=== PATIENT | male | born 1955 | race Two or more races ===

== ENCOUNTER 2017-07-09 07:50 | Outpatient (CLI) | payer OTHER | END 2017-07-09 08:06 | disposition home or self-care (01) | LOC: SONOGRAMA 07:50 | DX: M12.862 Other specific arthropathies, not elsewhere classified, left knee (principal); M12.861 Other specific arthropathies, not elsewhere classified, right knee ==

== ENCOUNTER 2017-07-24 06:21 | Outpatient (CLI) | payer OTHER | END 2017-07-24 06:30 | disposition home or self-care (01) | LOC: LAB 06:21 | DX: E88.89 Other specified metabolic disorders (principal); D68.8 Other specified coagulation defects; B95.62 Methicillin resistant Staphylococcus aureus infection as the cause of diseases classified elsewhere; E83.42 Hypomagnesemia ==

== ENCOUNTER 2017-07-24 07:19 | Outpatient (CLI) | payer OTHER | END 2017-07-24 07:36 | disposition home or self-care (01) | LOC: RAD 07:19 | DX: M79.651 Pain in right thigh (principal); M79.652 Pain in left thigh; M79.604 Pain in right leg; M79.605 Pain in left leg ==

== ENCOUNTER → 2017-08-06 | Outpatient (CLI) | payer OTHER | END | disposition home or self-care (01) | LOC: RAD 11:16 | DX: Z76.89 Persons encountering health services in other specified circumstances (principal); M17.0 Bilateral primary osteoarthritis of knee ==

== ENCOUNTER 2017-08-20 15:08 | Outpatient (CLI) | payer OTHER | END 2017-08-20 15:18 | disposition home or self-care (01) | LOC: RAD 15:08 | DX: M54.5 Low back pain (principal); M25.50 Pain in unspecified joint ==

== ENCOUNTER 2018-03-24 07:07 | Outpatient (CLI) | payer OTHER | END 2018-03-24 07:13 | disposition home or self-care (01) | LOC: RAD 07:07 | DX: J45.40 Moderate persistent asthma, uncomplicated (principal); R06.02 Shortness of breath ==

== ENCOUNTER 2018-03-25 08:46 | Outpatient (CLI) | payer OTHER | END 2018-03-25 08:57 | disposition home or self-care (01) | LOC: RAD 08:46 | DX: M25.562 Pain in left knee (principal) ==

== ENCOUNTER → 2018-06-05 | Day surgery (SDC) | payer OTHER ==
[~2018-06-05] MED LIST: ATORVASTATIN CA20 MG PO; COZAAR100 MG PO; EXFORGE 10-3201 EACH PO; FLUTI PO; FOLGARD TABLET1 EACH PO; GABAPENTIN300 MG PO; MIRTAZAPINE15 M1 PO; NORVASC2.5 M1 PO; SINGULAIR 10MG10 MG PO; SYMBICORT 16010.2 GM IH
== END | disposition home or self-care (01) ==
LOC: CIR.AMB 05:12
DX: S46.311A Strain of muscle, fascia and tendon of triceps, right arm, initial encounter (principal); M70.21 Olecranon bursitis, right elbow

== ENCOUNTER 2018-07-27 09:01 | Outpatient (CLI) | payer OTHER | END 2018-07-27 09:07 | disposition home or self-care (01) | LOC: RAD 501 09:01 | DX: M25.562 Pain in left knee (principal) ==

== ENCOUNTER 2018-10-05 08:33 | Outpatient (CLI) | payer OTHER | END 2018-10-05 08:38 | disposition home or self-care (01) | LOC: RAD 08:33 | DX: M25.531 Pain in right wrist (principal); M79.641 Pain in right hand ==

== ENCOUNTER 2020-06-07 07:26 | Outpatient (CLI) | payer OTHER | END 2020-06-07 15:47 | disposition home or self-care (01) | LOC: RAD 07:26 | PROVIDERS: ATTEND Neurological Surgery | DX: M41.85 Other forms of scoliosis, thoracolumbar region (principal); M48.02 Spinal stenosis, cervical region; M62.838 Other muscle spasm; M47.22 Other spondylosis with radiculopathy, cervical region; M50.01 Cervical disc disorder with myelopathy, high cervical region; E66.01 Morbid (severe) obesity due to excess calories ==

== ENCOUNTER 2020-09-04 07:44 | Outpatient (CLI) | payer OTHER | END 2020-09-04 07:53 | disposition home or self-care (01) | LOC: RAD 07:44 | PROVIDERS: ATTEND Neurological Surgery | DX: M79.2 Neuralgia and neuritis, unspecified (principal); M47.12 Other spondylosis with myelopathy, cervical region; M48.02 Spinal stenosis, cervical region; M47.22 Other spondylosis with radiculopathy, cervical region; M62.830 Muscle spasm of back; M41.85 Other forms of scoliosis, thoracolumbar region; M50.01 Cervical disc disorder with myelopathy, high cervical region; E66.01 Morbid (severe) obesity due to excess calories ==

== ENCOUNTER 2020-09-19 07:00 | Outpatient (CLI) | payer OTHER | END 2020-09-19 07:14 | disposition home or self-care (01) | LOC: RAD 07:00 | PROVIDERS: ATTEND Neurological Surgery | DX: J42 Unspecified chronic bronchitis (principal) ==

== ENCOUNTER 2020-12-20 11:09 | Outpatient (CLI) | payer OTHER | END 2020-12-20 11:13 | disposition home or self-care (01) | LOC: RAD 11:09 | PROVIDERS: ATTEND Neurological Surgery | DX: M50.323 Other cervical disc degeneration at C6-C7 level (principal); M43.22 Fusion of spine, cervical region ==

== ENCOUNTER 2021-09-19 08:31 | Outpatient (CLI) | payer OTHER | END 2021-09-19 08:41 | disposition home or self-care (01) | LOC: RAD 08:31 | PROVIDERS: ATTEND Internal Medicine Cardiovascular Disease | DX: M12.9 Arthropathy, unspecified (principal) ==

== ENCOUNTER 2023-02-18 07:25 | Outpatient (CLI) | payer OTHER | END 2023-02-18 07:29 | disposition home or self-care (01) | LOC: RAD 07:25 | PROVIDERS: ATTEND Neurological Surgery | DX: M41.85 Other forms of scoliosis, thoracolumbar region (principal); E66.01 Morbid (severe) obesity due to excess calories ==